=== PATIENT | female | born 1965 | race Caucasian/White ===

== ENCOUNTER 2016-12-07 10:13 | Day surgery (SDC) | payer BC ==
[2016-12-07] MEDS ORDERED: D5 LR 1000 ML 1,000 ML IV ONE (10:29)
[2016-12-07] MEDS ORDERED: DIPRIVAN VIAL 20 ML ONE (12:24)
[2016-12-07 12:56] VITALS: BP 127/76
== END 2016-12-07 12:03 | disposition home or self-care (01) ==
LOC: SURG1 10:13
PROVIDERS: ATTEND Internal Medicine Gastroenterology
PROC: 0DJD8ZZ Inspection of Lower Intestinal Tract, Via Natural or Artificial Opening Endoscopic (ICD-10-PCS; principal; 2016-12-07 14:15)
DX: Z12.11 Encounter for screening for malignant neoplasm of colon (principal); Z80.0 Family history of malignant neoplasm of digestive organs
CPT/HCPCS: A4217; J3490; J7120